=== PATIENT | female | born 2000 ===

== ENCOUNTER → 2019-01-13 | Outpatient (CLI) | payer BC, MEDICAID ==
[~2019-01-13] MED LIST: ACET160L6; ALPR0.254; CEPH500T PO; FLUO20CA25; ONDA4TAB11 PO
--- NOTE | 2019-01-13 19:33 | Diagnostic Imaging Report ---
PROCEDURE: US OB SINGLE FETUS <14 WKS. TECHNIQUE: Multiple real-time grayscale images were obtained over the gravid uterus in various projections. INDICATION: Spotting, cramping during . CORRELATION STUDY: None. FINDINGS: Uterus is 9.2 x 4.4 x 5.4 cm. Intrauterine is noted. The gestational sac configuration appears relatively unremarkable. heart activity is demonstrated at 124 beats per minutes. There does appear to be perhaps a very tiny subchorionic fluid collection likely small bleed. [place]-rump length 0.63 cm for an estimated age of 6 weeks 4 days. Yolk sac is present. Imaging of maternal adnexa, right ovary 3.2 x 2.0 x 3.0 cm and unremarkable with presence of blood flow. The left ovary is not visualized perhaps owing to position or obscuration by bowel gas. IMPRESSION: 1. Very early intrauterine , sonographic estimated age 6 weeks 4 days for an estimated date of delivery September 04, 2019. There does appear to be likely a very small subchorionic bleed present. Dictated by: Dictated on workstation # [id number]
== END ==
LOC: RAD 14:59
PROVIDERS: ATTEND Family Medicine
DX: O26.851 Spotting complicating pregnancy, first trimester (principal); O26.891 Other specified pregnancy related conditions, first trimester; R10.2 Pelvic and perineal pain; Z3A.01 Less than 8 weeks gestation of pregnancy
CPT/HCPCS: 76801

== ENCOUNTER → 2019-04-11 | Outpatient (CLI) | payer BC, MEDICAID ==
--- NOTE | 2019-04-11 17:17 | Diagnostic Imaging Report ---
INDICATION: evaluation. TECHNIQUE: Multiple real-time grayscale images were obtained over the gravid uterus. COMPARISON: 01/13/2019. FINDINGS: [place] intrauterine fetus is in cephalic presentation. The placenta is anterior without evidence of previa. cardiac activity is present with rate of 130 beats per minute. There is normal amount of amniotic fluid. No anatomic abnormality is seen on survey, however evaluation of the cardiac structures and umbilical cord is limited due to positioning. Cervical length is 4.6 cm. There is no maternal adnexal region abnormality identified. IMPRESSION: Unremarkable obstetrical ultrasound with estimated gestational age of 19 weeks and 3 days. The sonographic EDC obtained on the previous examination of 09/04/2019 remains valid. Biometrical measurements are as follows: Biparietal 4.5 cm, age 19 weeks 5 days. Head circumference 16.7 cm, age 19 weeks 3 days. Abdominal circumference 13.6 cm, age 19 weeks 1 days. Femur length 3.0 cm, age 19 weeks 2 days. Sonographic estimate age: 19 weeks 3 days. Sonographic estimated date of delivery: 09/02/2019. Estimated Weight: 278 gm (+/- 41 gm). LMP percentile: 47%. heart rate: 130 beats per minute. number: 1 of 1. Dictated by: Dictated on workstation # [id number]
== END ==
LOC: RAD 14:38
PROVIDERS: ATTEND Family Medicine
DX: Z36.89 Encounter for other specified antenatal screening (principal); Z3A.19 19 weeks gestation of pregnancy
CPT/HCPCS: 76805

== ENCOUNTER 2019-09-01 13:28 | Inpatient (IN) | payer MEDICAID ==
[~2019-09-01] VITALS: Ht 160 cm; Wt 70.9 kg
[2019-09-01] VITALS (7 sets, daily range): BP systolic 110–126; BP diastolic 67–80
--- NOTE | 2019-09-01 19:10 | NUR ---
DUANE SIGALA presented to unit via ambulatory from home, accompanied by Kody, for a scheduled cytotec INDUCTION. DUANE SIGALA weighed, gowned, voided, and to bed. EFHM and TOCO applied, VS taken. DUANE SIGALA oriented to bed controls, call light, TV, heat, and A/C controls. Pt denies feeling ctx, leaking or bleeding.
[2019-09-01] MEDS ORDERED: LACTATED RINGERS 1,000 ML IV SCH (19:40)
[2019-09-01] MEDS ORDERED: ZOLPIDEM 5 MG (AMBIEN) TAB PO NR (19:45)
[2019-09-01] MEDS ORDERED: TERBUTALINE INJ 1 MG/ML (BRETHINE) AMP SC PRN (19:45)
[2019-09-01] MEDS ORDERED: MISOPROSTOL 100 MCG (CYTOTEC) TAB PO NR (19:45)
[2019-09-01] MEDS ORDERED: MINERAL OIL CONCENTRATE 99.9% 15 ML UDC TOP PRN (19:45)
[2019-09-01] MEDS ORDERED: LIDOCAINE 1% INJ 20 ML 20 ML VIAL INJ PRN (19:45)
[2019-09-01] MEDS ORDERED: D5 LR IV SOLUTION 1,000 ML IV ONE (19:49)
[2019-09-01] MEDS ORDERED: LACTATED RINGERS 1,000 ML IV ONE (19:49)
[2019-09-01] MEDS ORDERED: PREN-37 PO (19:49)
[2019-09-01] MEDS: D5 LR IV SOLUTION 1,000 ML IV SCH (20:35)
[2019-09-01 20:39] LABS: BILIRUBIN,URINE NEGATIVE (NEGATIVE); CLARITY,URINE CLEAR; COLOR,URINE YELLOW; GLUCOSE, URINE (UA) NEGATIVE (NEGATIVE); KETONES,URINE NEGATIVE (NEGATIVE); LEUKOCYTE ESTERASE ,URINE 3+ (NEGATIVE); NITRITE,URINE NEGATIVE (NEGATIVE); PH,URINE 7 (5-9); PROTEIN,URINE NEGATIVE (NEGATIVE)
[2019-09-01 20:39] LABS: BASOPHILS % (AUTO) 0 % (0-10); EOSINOPHILS # (AUTO) 0.1 10^3/uL (0.0-0.3); EOSINOPHILS % (AUTO) 1 % (0-10); HEMATOCRIT 31 % (35-52); HEMOGLOBIN 10.5 G/DL (11.5-16.0); LYMPHOCYTES # (AUTO) 2.5 X 10^3 (1.0-4.0); LYMPHOCYTES % (AUTO) 27 % (12-44); MEAN CORPUSCULAR HEMOGLOBIN 28 PG (25-34); MEAN CORPUSCULAR HGB CONC 34 G/DL (32-36); MEAN CORPUSCULAR VOLUME 82 FL (80-99); MEAN PLATELET VOLUME 11.3 FL (7.4-10.4); MONOCYTES # (AUTO) 0.9 X 10^3 (0.0-1.0); MONOCYTES % (AUTO) 9 % (0-12); NEUTROPHILS # (AUTO) 5.6 X 10^3 (1.8-7.8); NEUTROPHILS % (AUTO) 62 % (42-75); PLATELET COUNT 214 10^3/uL (130-400); RED CELL DISTRIBUTION WIDTH 13.9 % (10.0-14.5)
[2019-09-01 20:53] LABS: BACTERIA,URINE MODERATE /HPF; SQUAMOUS EPITHELIAL CELL,UR 25-50 /HPF
[2019-09-01] MEDS ORDERED: CATHETER FLUSH 10 ML SYR IV SCH (22:00)
[2019-09-02] VITALS (65 sets, daily range): BP systolic 93–153; BP diastolic 50–99
[2019-09-02] MEDS: MISOPROSTOL 100 MCG (CYTOTEC) TAB PO SCH ×2 (01:06→05:13)
[2019-09-02] MEDS: D5 LR IV SOLUTION 1,000 ML IV SCH ×2 (04:17→10:56)
[2019-09-02] MEDS ORDERED: FLU QUADRIvalent (5+ YOA) 2019-2020 (AFLURIA) 0.5 ML IM ONE (07:15)
[2019-09-02] MEDS: BUTORPHANOL INJ 2 MG/ML (STADOL) VIAL IV PRN ×2 (07:41→10:24)
[2019-09-02] MEDS ORDERED: OXYTOCIN/NORMAL SALINE 500 ML IV SCH (08:05)
--- NOTE | 2019-09-02 08:05 | History & Physical-OB ---
OB - Chief Complaint & HPI Date/Time Date of Admission: Date of Admission: Sep 01, 2019 at 19:18 Date seen by a Provider: Sep 02, 2019 Time Seen by a Provider: 07:00 Chief Complaint/History OB-Reason for Admission/Chief: Induction of Labor Hx : 1 Hx Para: 0 Expected Date of Delivery: Sep 04, 2019 Gestational Age in Weeks: 39 Gestational Age in Days: 4 Admission Nurse Assessment Rev: Yes History of Labs GBS negative Allergies and Home Medications Allergies Coded Allergies: No Known Drug Allergies (Unverified , 07/16/09) Patient Home Medication List Home Medication List Reviewed: Yes OB - History Hx of Present Care: Yes Ultrasounds: Normal mid trimester US Obstetrical Complications: None Medical Complications: None Delivery History Hx Blood Disorders: No Adverse Rxn to Tranfusion: No Patient Past Medical History History of depression and anxiety. History of alcohol intoxication September 2015. Cutting and suicidal ideation in the remote past. Social History/Family History HIV/AIDS: No Recent Infectious Disease Expo: No Sexually Transmitted Disease: No Alcohol Use: Occasionally Uses Recreational Drug Use: No Immunizations Hepatitis A: No Hepatitis B: No Tetanus Booster (TDap): Less than 5yrs OB - Admission Exam Physical Exam Vitals: Vital Signs 09/01/19 09/02/19 19:25 07:18 Temp 36.6 Pulse 87 Resp 18 B/P (MAP) 126/78 (94) Pulse Ox 97 O2 Delivery Room Air HEENT: Moist Membranes Heart: Rhythm Normal Lungs: Clear Abdomen: Gravid Cervical Dilatation: 1cm Effacement: 75% Station: -3 Membranes: Intact Heart Rate: 130's Accelerations: Accelerations Present Decelerations: Early Decelerations Short Term Variability: Present Jail Variability: Average (6-25) Contractions on Admission: >10 Minutes Apart Intensity: Mild Luis Scoring Tool (Modified) Dilation (cm): 1-2cm (1) Effacement (%): 51-79% (2) Descent/Station: -3 (0) Cervix Consistency: Medium(1) Cervix Position: Posterior (0) Luis Score: 4 Labs Laboratory Tests Test 09/01/19 19:30 09/01/19 20:25 Range/Units Urine Color YELLOW Urine Clarity CLEAR Urine pH 7 5-9 Urine Specific Spray 1.015 L 1.016-1.022 Urine Protein NEGATIVE NEGATIVE Urine Glucose (UA) NEGATIVE NEGATIVE Urine Ketones NEGATIVE NEGATIVE Urine Nitrite NEGATIVE NEGATIVE Urine Bilirubin NEGATIVE NEGATIVE Urine Urobilinogen NORMAL NORMAL MG/DL Urine Leukocyte Esterase 3+ H NEGATIVE Urine RBC (Auto) NEGATIVE NEGATIVE Urine RBC NONE /HPF Urine WBC 10-25 H /HPF Urine Squamous Epithelial Cells 25-50 H /HPF Urine Crystals NONE /LPF Urine Bacteria MODERATE H /HPF Urine Casts NONE /LPF Urine Mucus NEGATIVE /LPF Urine Culture Indicated YES White Blood Count 9.0 4.3-11.0 10^3/uL Red Blood Count 3.80 L 4.35-5.85 10^6/uL Hemoglobin 10.5 L 11.5-16.0 G/DL Hematocrit 31 L 35-52 % Mean Corpuscular Volume 82 80-99 FL Mean Corpuscular Hemoglobin 28 25-34 PG Mean Corpuscular Hemoglobin Concent 34 32-36 G/DL Red Cell Distribution Width 13.9 10.0-14.5 % Platelet Count 214 130-400 10^3/uL Mean Platelet Volume 11.3 H 7.4-10.4 FL Neutrophils (%) (Auto) 62 42-75 % Lymphocytes (%) (Auto) 27 12-44 % Monocytes (%) (Auto) 9 0-12 % Eosinophils (%) (Auto) 1 0-10 % Basophils (%) (Auto) 0 0-10 % Neutrophils # (Auto) 5.6 1.8-7.8 X 10^3 Lymphocytes # (Auto) 2.5 1.0-4.0 X 10^3 Monocytes # (Auto) 0.9 0.0-1.0 X 10^3 Eosinophils # (Auto) 0.1 0.0-0.3 10^3/uL Basophils # (Auto) 0.0 0.0-0.1 10^3/uL OB - Assessment/Plan/Diagnosis Assessment Assessment: induction of labor Admission Dx 1. IUP at 39w4d gestation Admission Status: Inpatient Order (span 2 midnights) Reason for Inpatient Admission: L&D Plan Plan: Induction Induction Method: per Misoprostol Protocol Other Plan -pitocin as necessary -epidural if she desires KASIE POLANCO MD Sep 02, 2019 08:04
[2019-09-02] MEDS ORDERED: SUFENTA 0.6MCG/ML BUPIVA 0.125 100 ML ONE (11:26)
[2019-09-02] MEDS ORDERED: fentaNYL INJECTION 100 MCG/2 ML AMP ONE (11:51)
[2019-09-02] MEDS ORDERED: BUPIVACAINE 0.25% 30 ML (SENSORCAINE) VIAL ONE (11:51)
[2019-09-02] MEDS ORDERED: LACTATED RINGERS 1,000 ML IV SCH (12:59)
[2019-09-02] MEDS ORDERED: diphenhydrAMINE 50 MG/ML INJ (BENADRYL) IV PRN (13:00)
[2019-09-02] MEDS ORDERED: EPIDURAL (SUFENTA 0.6MCG/ML BUPIVA 0.125%) 100 ML BAG EPI PRN (13:00)
[2019-09-02] MEDS ORDERED: NALOXONE 0.4 MG/ML 1 ML (NARCAN) VIAL IV PRN ×2 (13:00)
[2019-09-02] MEDS ORDERED: METOCLOPRAMIDE INJ 10 MG/2 ML (REGLAN) IV PRN (13:00)
[2019-09-02] MEDS ORDERED: ONDANSETRON 4 MG/2 ML (SDV) Z0FRAN IV PRN (13:00)
--- NOTE | 2019-09-02 14:03 | Progress Note ---
Subjective Subjective/Events-last exam Raul q [address] strip reactive Objective Exam Last Set of Vital Signs Vital Signs Date Time Temp Pulse Resp B/P (MAP) Pulse Ox O2 Delivery O2 Flow Rate FiO2 09/02/19 12:30 117 18 98/56 (70) 98 Room Air 09/02/19 12:01 36.6 Capillary Refill : Less Than 3 Seconds I&O Intake and Output 09/02/19 00:00 Intake Total 1000 ml Balance 1000 ml Intake IV Total 1000 ml Daily Weight Change No General: No Acute Distress Other physical findings Cervix 4 1/2 cm. Results/Procedures Lab Laboratory Tests 09/01/19 19:30: Urine Color YELLOW, Urine Clarity CLEAR, Urine pH 7, Urine Specific [place] 1.015L, Urine Protein NEGATIVE, Urine Glucose (UA) NEGATIVE, Urine Ketones NEGATIVE, Urine Nitrite NEGATIVE, Urine Bilirubin NEGATIVE, Urine Urobilinogen NORMAL, Urine Leukocyte Esterase 3+H, Urine RBC (Auto) NEGATIVE, Urine RBC NONE, Urine WBC 10-25H, Urine Squamous Epithelial Cells 25-50H, Urine Crystals NONE, Urine Bacteria MODERATEH, Urine Casts NONE, Urine Mucus NEGATIVE, Urine Culture Indicated YES 09/01/19 20:25: White Blood Count 9.0, Red Blood Count 3.80L, Hemoglobin 10.5L, Hematocrit 31L, Mean Corpuscular Volume 82, Mean Corpuscular Hemoglobin 28, Mean Corpuscular Hemoglobin Concent 34, Red Cell Distribution Width 13.9, Platelet Count 214, Mean Platelet Volume 11.3H, Neutrophils (%) (Auto) 62, Lymphocytes (%) (Auto) 27, Monocytes (%) (Auto) 9, Eosinophils (%) (Auto) 1, Basophils (%) (Auto) 0, Neutrophils # (Auto) 5.6, Lymphocytes # (Auto) 2.5, Monocytes # (Auto) 0.9, Eosinophils # (Auto) 0.1, Basophils # (Auto) 0.0 Assessment/Plan Assessment/Plan Admission Status: Inpatient Order (span 2 midnights) Assessment & Plan 1. IUP at 39w4d gestation in labor -continue with pitocin Clinical Quality Measures DVT/VTE Risk/Contraindication: Risk Factor Score Per Nursin RFS Level Per Nursing on Admit: 1=Low/No VTE PPX KASIE POLANCO MD Sep 02, 2019 14:02
[2019-09-02] MEDS ORDERED: MEPIVACAINE (CARBOCAINE) 2% 50 ML VIAL ONE (14:45)
[2019-09-02] MEDS: OXYTOCIN/NORMAL SALINE 500 ML IV SCH ×2 (15:52→20:26)
--- NOTE | 2019-09-02 15:59 | NUR ---
1559 pt to semi fowlers. Daksha care and pad changed. FF @ U . no clots expressed. No c/o. Holding baby. clean sheet and blanket provided. mod rubra. 1614 FF @ U. mod rubra. Fresh water given to pt. 1629 FF@U.mod rubra. 1630 Epidural dcd. tip intact. band aid at site. no bruising ,no bleeding and no c/o voiced via pt. 1644 FF @ U. mod rubra. Ice pack to perineum. 1659 FF@U. mod rubra. 1703 FF@U. light rubra. pad changed. 1738 FF @ U. light rubra. 1807 Ff @ U Light rubra. 1845 Pt up to bathroom voided without difficult. stable on feet. control of legs. Pt used daksha bottle, tucks pads and derma plast spray.clean pad and under longoria. 1900 IV SL. pt to wheel chair and transferred to room 311. Call light within reach. Pt verbalizes understanding of room, shower and diet. No concerns voiced at this time.
[2019-09-02] MEDS ORDERED: BENZOCAINE/MENTHOL (DERMOPLAST) 56 ML CAN TP PRN (17:00)
[2019-09-02] MEDS ORDERED: TETANUS,DIPTH,PERTUSS P/F (BOOSTRIX) 0.5 ML VIAL IM ONE (17:00)
[2019-09-02] MEDS ORDERED: WITCH HAZEL(TUCKS) 40 EA JAR TOP PRN (17:00)
[2019-09-02] MEDS ORDERED: MEASLES,MUMPS,RUBELLA 1 EA INJ SQ ONE (17:00)
--- NOTE | 2019-09-02 17:01 | OB Labor & Delivery Record ---
L&D History Date of Service Date of Service: Sep 02, 2019 History Expected Date of Delivery: Sep 04, 2019 Gestational Age in Weeks: 39 Hx : 1 Hx Para: 1 Complications Events: Routine care Operative Indications (Cesarea: N/A-Vaginal Delivery Intrapartal Events: None L&D Stage1 Stage One Onset of Labor - Date: Sep 02, 2019 Onset of Labor - Time: 06:55 Monitors and Tracing Monitor Mode: Internal Heart Rate: 120 Monitor Accelerations: Uniform Monitor Decelerations: Variable Station: -1 Custodial Variability: Average (6-10) Short Term Variability: Present Presentation: Vertex Vital Signs VS - Last 72 Hours, by Label 09/01/19 09/01/19 09/01/19 09/01/19 19:25 21:20 21:36 22:08 Temp 36.7 36.1 Pulse 89 95 84 85 Resp 18 18 18 18 B/P (MAP) 121/80 (94) 125/76 (92) 115/70 (85) Pulse Ox 97 O2 Delivery Room Air Room Air Room Air Room Air 09/01/19 09/01/19 09/01/19 09/02/19 22:37 23:06 23:36 00:05 Pulse 104 88 81 81 Resp 18 18 18 18 B/P (MAP) 117/69 (85) 110/67 (81) 119/74 (89) 113/70 (84) O2 Delivery Room Air Room Air Room Air Room Air 09/02/19 09/02/19 09/02/19 09/02/19 00:36 01:06 01:36 02:06 Temp 36.5 Pulse 81 90 86 78 Resp 18 18 18 18 B/P (MAP) 110/70 (83) 124/72 (89) 112/71 (85) 121/76 (91) O2 Delivery Room Air Room Air Room Air Room Air 09/02/19 09/02/19 09/02/19 09/02/19 02:36 03:06 03:36 04:06 Pulse 97 88 88 79 Resp 18 18 18 18 B/P (MAP) 130/79 (96) 115/76 (89) 114/70 (85) 110/67 (81) O2 Delivery Room Air Room Air Room Air Room Air 09/02/19 09/02/19 09/02/1919 04:36 05:06 05:41 06:07 Temp 36.1 Pulse 71 67 80 79 Resp 18 18 18 18 B/P (MAP) 110/67 (81) 108/65 (79) 120/79 (93) 125/83 (97) O2 Delivery Room Air Room Air Room Air Room Air 09/02/19 09/02/19 09/02/19 09/02/19 06:36 07:07 07:18 07:38 Temp 36.6 Pulse 86 100 87 93 Resp 18 18 18 18 B/P (MAP) 135/86 (102) 136/93 (107) 126/78 (94) 129/88 (102) O2 Delivery Room Air Room Air Room Air Room Air 09/02/19 09/02/19 09/02/19 09/02/19 08:00 08:30 09:00 09:15 Temp 36.7 Pulse 84 84 100 96 Resp 18 18 18 18 B/P (MAP) 128/75 (92) () 130/85 (100) 130/75 (93) Pulse Ox 98 98 O2 Delivery Room Air Room Air Room Air Room Air 09/02/19 09/02/19 09/02/19 09/02/19 09:30 09:45 10:00 10:15 Temp 36.4 Pulse 109 109 113 Resp 20 20 20 B/P (MAP) 123/86 (98) 146/84 (104) 151/67 (95) O2 Delivery Room Air Room Air Room Air Room Air 09/02/19 09/02/19 09/02/19 09/02/19 10:20 10:35 10:48 11:04 Pulse 97 100 112 113 Resp 18 18 18 18 B/P (MAP) 133/81 (98) 118/72 (87) 143/90 (107) 153/79 (103) O2 Delivery Room Air Room Air Room Air Room Air 09/02/19 09/02/19 09/02/19 09/02/19 11:18 11:34 11:50 11:55 Pulse 105 109 100 110 Resp 18 18 18 18 B/P (MAP) 139/64 (89) 130/65 (86) 146/99 (115) 138/88 (105) Pulse Ox 98 O2 Delivery Room Air Room Air Room Air Room Air 10/09/02/19 09/02/19 09/02/19 12:01 12:04 12:06 12:10 Temp 36.6 Pulse 109 110 112 109 Resp 18 18 18 18 B/P (MAP) 138/68 (91) 138/73 (94) 132/71 (91) 133/73 (93) Pulse Ox 100 100 100 98 O2 Delivery Room Air Room Air Room Air Room Air 09/02/19 09/02/19 09/02/19 09/02/19 12:13 12:16 12:20 12:25 Pulse 116 123 124 123 Resp 18 18 18 18 B/P (MAP) 116/70 (85) 118/55 (76) 98/53 (68) 98/54 (69) Pulse Ox 99 97 99 99 O2 Delivery Room Air Room Air Room Air Room Air 09/02/19 09/02/19 12:28 12:30 Pulse 129 117 Resp 18 18 B/P (MAP) 93/52 (66) 98/56 (70) Pulse Ox 98 98 O2 Delivery Room Air Room Air Signs of Distress by FHT Signs of Distress no Rupture of Membranes Spontaneous Ruture of Membrane: No Amniotic Membrane Rupture Time: 0700 Amniotic Membrane Fluid Desc.: Clear Induction/Anesthesia Epidural Cath Placement - Time: 1206 L&D Stage2 Stage Two Stage II Date: Sep 02, 2019 Stage II Time: 15:47 Monitors and Tracing Monitor Mode: Internal Heart Rate: 120 Monitor Accelerations: Uniform Monitor Decelerations: Variable Parent Educator Variability: Average (6-10) Short Term Variability: Present Position: Left Occiput Transverse Presentation: Vertex Signs of Distress by FHT Signs of Distress no Cord Descript/Complications Cord Vessel Description: 3 Vessels Delivery Type Delivery Method: Low Vacuum Extraction Anterior Shoulder: Left Episiotomy/Perineal Laceration Laceraction(s)/Extensions: Yes Episiotomy Description: Midline Sutures Used: Vicryl Condition of Infant Delivery 1 minute Comment: 8 5 minute Comment: 9 Condition of Infant Condition of : Living Exam: No Observed Abnormalities Resuscitation Resuscitation: N/A - Spontaneous Resp L&D Stage3 Stage Three Stage III Date: Sep 02, 2019 Stage III Time: 15:51 Pictocin Pitocin Administration mu/min: 8 Pitocin ml/hr: 8 Placenta Delivery Placenta Delivery: Spontaneous Delivery Summary Summary Estimated blood loss (mL): 400 Condition of Delivery Examined: Cervix Examined Post Hemorrhage: No Intervention Required none KASIE POLANCO MD Sep 02, 2019 17:01
[2019-09-02] MEDS: IBUPROFEN 600 MG (MOTRIN) TAB PO SCH (18:08)
[2019-09-02] MEDS: ACETAMINOPHEN 500 MG TAB (TYLENOL) PO SCH (18:46)
[2019-09-02] MEDS: DOCUSATE SODIUM 100 MG (COLACE) CAP PO SCH (20:53)
[2019-09-02] MEDS ORDERED: CATHETER FLUSH 10 ML SYR IV SCH (22:00)
[2019-09-03 00:50] VITALS: BP 106/71
[2019-09-03] MEDS: IBUPROFEN 600 MG (MOTRIN) TAB PO SCH ×3 (00:50→12:01)
[2019-09-03 03:52] VITALS: BP 106/75
[2019-09-03] MEDS: ACETAMINOPHEN 500 MG TAB (TYLENOL) PO SCH ×2 (03:52→12:01)
[2019-09-03 06:15] LABS: BASOPHILS % (AUTO) 0 % (0-10); EOSINOPHILS # (AUTO) 0.1 10^3/uL (0.0-0.3); EOSINOPHILS % (AUTO) 1 % (0-10); HEMATOCRIT 28 % (35-52); HEMOGLOBIN 9.1 G/DL (11.5-16.0); LYMPHOCYTES # (AUTO) 2.5 X 10^3 (1.0-4.0); LYMPHOCYTES % (AUTO) 22 % (12-44); MEAN CORPUSCULAR HEMOGLOBIN 27 PG (25-34); MEAN CORPUSCULAR HGB CONC 33 G/DL (32-36); MEAN CORPUSCULAR VOLUME 83 FL (80-99); MEAN PLATELET VOLUME 11.1 FL (7.4-10.4); MONOCYTES # (AUTO) 1.1 X 10^3 (0.0-1.0); MONOCYTES % (AUTO) 10 % (0-12); NEUTROPHILS # (AUTO) 7.5 X 10^3 (1.8-7.8); NEUTROPHILS % (AUTO) 67 % (42-75); PLATELET COUNT 181 10^3/uL (130-400); RED CELL DISTRIBUTION WIDTH 14.1 % (10.0-14.5); WHITE BLOOD COUNT 11.2 10^3/uL (4.3-11.0)
[2019-09-03 08:51] VITALS: BP 117/92
[2019-09-03] MEDS: DOCUSATE SODIUM 100 MG (COLACE) CAP PO SCH (09:05)
--- NOTE | 2019-09-03 11:29 | Anesthesia-Regional Post-Op ---
Regional Patient Condition Mental Status: Alert, Oriented x3 Circulation: Same as Pre-Op Headache: Absent Sensation: Full Recovery Motor Block: Absent Post Op Complications Complications None Follow Up Care/Instructions Patient Instructions None needed. Anesthesia/Patient Condition Patient is doing well, no complaints, stable vital signs, no apparent adverse anesthesia problems. No complications reported per nursing. ELENA BARBOSA CRNA Sep 03, 2019 11:29
[2019-09-03 11:59] VITALS: BP 111/53
--- NOTE | 2019-09-03 13:30 | Discharge Inst-Women's Service ---
Discharge Inst-Women's Serv Depart Medication/Instructions New, Converted or Re-Newed RX: Other Instructions May take ibuprofen 2-3 200mg tabs every 6hours as needed for cramps Problems Reviewed?: Yes Consults/Follow Up Additional Follow Up: Yes (Dr Polanco in 6 weeks.) Activity Activity: Activity as Tolerated Driving Instructions: No Driving for 1 Week Nothing Inside Vagina: No [place] (for 6 weeks) Diet Discharge Diet: Regular Diet Return to The Hospital For: as below Symptoms to Report to : Bleeding Excessive, Pain Increased, Fever Over 101 Degrees F, Vaginal Discharge Foul For Any Problems or Questions: Contact Your Physician KASIE POLANCO MD Sep 03, 2019 13:30
--- NOTE | 2019-09-03 13:37 | Discharge Summary ---
Diagnosis/Chief Complaint Date of Admission Sep 01, 2019 at 19:18 Date of Discharge September 03, 2019 Discharge Date: Sep 03, 2019 Discharge Time: 1800 Admission Diagnosis Admission Diagnosis 1. IUP at 39 weeks Discharge Diagnosis 1. IUP at 39 weeks Reason Hospital Visit 18 yo G1 now T1L1 female who initally presented to L&D during the pm of 09/01 for induction of labor by cytotec. She was at 39w4d gestation on induction or cytotec evening. Her care was obtained through Dr Polanco's office and essentially unremarkable. Discharge Summary-OBS Procedures 1. Epidural per anesthesia 2. Suction assist vertex vaginal delivery 3. Repair of midline episotomy Discharge Physical Examination Allergies: Coded Allergies: No Known Drug Allergies (Unverified , 07/16/09) Vitals & I&Os Vital Signs Date Time Temp Pulse Resp B/P (MAP) Pulse Ox O2 Delivery O2 Flow Rate FiO2 09/03/19 11:59 36.8 95 18 111/53 (72) 96 Room Air 09/02/19 14:30 15.00 General Appearance: No Acute Distress Respiratory: Clear to Auscultation Cardiovascular: Regular Rate Abdominal: Soft (with uterus firm) Skin: No Rashes Neuro: Normal Gait, Normal Speech Hospital Course Was the Problem List Reviewed?: Yes following cytotec she had contraction pattern. In the am of 1025 she underwent amniotomy with placement of FECG. fluid was noted to be clear. see L&D summary for full details of delivery. Following delivery she underwent routine PP care orders. She was without SOB, leg pain, or CP. she tolerated regular diet and was ambulatory. Hg was at 9.1 on PP day 1 following delivery compared to admit day hg of 10.5. She was felt ready for DC during the pm of 09/03. Pending Labs Laboratory Tests 09/03/19 05:47: White Blood Count 11.2, Red Blood Count 3.33, Hemoglobin 9.1, Hematocrit 28, Mean Corpuscular Volume 83, Mean Corpuscular Hemoglobin 27, Mean Corpuscular Hemoglobin Concent 33, Red Cell Distribution Width 14.1, Platelet Count 181, Mean Platelet Volume 11.1, Neutrophils (%) (Auto) 67, Lymphocytes (%) (Auto) 22, Monocytes (%) (Auto) 10, Eosinophils (%) (Auto) 1, Basophils (%) (Auto) 0, Neutrophils # (Auto) 7.5, Lymphocytes # (Auto) 2.5, Monocytes # (Auto) 1.1, Eosinophils # (Auto) 0.1, Basophils # (Auto) 0.0 Discharge Instructions to patient/family Please see electronic discharge instructions given to patient. Discharge Medications Reviewed and agree with Discharge Medication list on patient's Discharge Instruction sheet Clinical Quality Measures DVT/VTE Risk/Contraindication: Risk Factor Score Per Nursin RFS Level Per Nursing on Admit: 1=Low/No VTE PPX KASIE POLANCO MD Sep 03, 2019 13:37
[2019-09-03] MEDS ORDERED: TETANUS,DIPTH,PERTUSS P/F (BOOSTRIX) 0.5 ML VIAL IM ONE (16:40)
--- NOTE | 2019-09-03 17:45 | NUR ---
Discharge instructions explained, signed and copy to patient. pt verbalized understanding of instructions and denied questions.
--- NOTE | 2019-09-03 18:00 | NUR ---
Discharged to home. Belongings in hand. Ambulates self downstairs accompanied by s.o, staff and family.
== END 2019-09-03 18:00 | disposition home or self-care (01) | DRG 807 ==
LOC: LDRP 19:18
PROVIDERS: ADMIT Family Medicine; ATTEND Family Medicine
PROC: 3E0DXGC Introduction of Other Therapeutic Substance into Mouth and Pharynx, External Approach (ICD-10-PCS; 2019-09-01)
PROC: 10D07Z6 Extraction of Products of Conception, Vacuum, Via Natural or Artificial Opening (ICD-10-PCS; principal; 2019-09-02)
PROC: 0W8NXZZ Division of Female Perineum, External Approach (ICD-10-PCS; 2019-09-02)
DX: O75.89 Other specified complications of labor and delivery (principal); O99.344 Other mental disorders complicating childbirth; F32.9 Major depressive disorder, single episode, unspecified; F41.9 Anxiety disorder, unspecified; Z3A.39 39 weeks gestation of pregnancy; Z37.0 Single live birth; Z23 Encounter for immunization
CPT/HCPCS: 36415; 81000; 85025; 86850; 86900; 86901; 87088; 90715